=== PATIENT | female | born 1935 | race Caucasian/White ===

== ENCOUNTER 2020-10-18 13:50 | Emergency (ER) | payer OTHER ==
[~2020-10-18] VITALS: Ht 154.9 cm; Wt 54.4 kg
[2020-10-18 15:36] LABS: ABSOLUTE BASOPHILS 0.1 thou/uL (0.0-0.2); ABSOLUTE LYMPHOCYTES 1.5 thou/uL (0.8-5.3); ABSOLUTE MONOCYTES 0.7 thou/uL (0.0-1.2); ABSOLUTE NEUTROPHILS 5.1 thou/uL (1.6-8.1); BASOPHILS 0.9 %; EOSINOPHILS 0.4 %; HEMATOCRIT 33.8 % (37.0-47.0); HEMOGLOBIN 10.5 gm/dL (12.0-15.0); LYMPHOCYTES 20.4 %; MCH 26.8 pg (26.0-34.0); MCHC 31.1 g/dL (28.0-37.0); MCV 86.1 fL (80.0-100.0); MONOCYTES 9.4 %; MPV 7.6 fl. (7.2-11.1); NUCLEATED RBCS 0 /100WBC; PLATELET COUNT* 247 thou/uL (150-400); POLYS 68.9 %; RBC 3.92 mil/uL (4.20-5.00); RDW-CV 18.1 % (10.5-14.5); WBC 7.4 thou/uL (4.0-11.0)
[2020-10-18 15:39] LABS: CALCIUM 9.4 mg/dL (8.5-10.1); CREATININE 1.7 mg/dL (0.6-1.3); POTASSIUM 3.6 mmol/L (3.5-5.1)
[2020-10-18 16:00] LABS: APTT 36.7 Seconds (25.0-31.3); INR 1.4; PROTIME 14.6 Seconds (9.20-11.50)
[2020-10-18] MEDS ORDERED: CEPHALEXIN500 MG PO (16:03)
[2020-10-18] MEDS ORDERED: HYDROCODON-ACE1 EAC7 PO (16:11)
[2020-10-18 16:45] VITALS: BP 134/72
== END 2020-10-18 16:45 | disposition home or self-care (01) ==
LOC: M.ERS 13:50
PROVIDERS: Nurse Practitioner Psychiatric/Mental Health
DX: R60.0 Localized edema (principal); M71.21 Synovial cyst of popliteal space [Baker], right knee; I10 Essential (primary) hypertension; I48.91 Unspecified atrial fibrillation

== ENCOUNTER 2021-02-16 17:00 | Observation (INO) | payer OTHER ==
[~2021-02-16] VITALS: Ht 154.9 cm; Wt 54.4 kg
[~2021-02-16 17:00] MED LIST: CEPHALEXIN500 MG PO; HYDROCODON-ACE1 EAC7 PO
[2021-02-16 17:09] VITALS: BP 118/43
[2021-02-16] MEDS ORDERED: LISINOPRIL10 MG PO (17:23)
[2021-02-16] MEDS ORDERED: XARELTO2.5 MG PO (17:23)
[2021-02-16] MEDS ORDERED: LIPITOR10 MG PO (17:23)
[2021-02-16] MEDS ORDERED: AMOXICILLIN 50500 MG PO (17:24)
[2021-02-16] MEDS ORDERED: ZOFRAN4 MG PO (17:24)
[2021-02-16] MEDS ORDERED: [UNRECOGNIZED DRUG - REMARK] (17:24)
[2021-02-16 18:42] LABS: ABSOLUTE MONOCYTES 0.4 thou/uL (0.0-1.2); HEMOGLOBIN 7.3 gm/dL (12.0-15.0); WBC 5.2 thou/uL (4.0-11.0)
[2021-02-16 18:43] LABS: ABSOLUTE BASOPHILS 0.1 thou/uL (0.0-0.2); ABSOLUTE LYMPHOCYTES 1.6 thou/uL (0.8-5.3); ABSOLUTE NEUTROPHILS 3.1 thou/uL (1.6-8.1); EOSINOPHILS 0.8 %; HEMATOCRIT 24.3 % (37.0-47.0); LYMPHOCYTES 31.2 %; MCH 21.8 pg (26.0-34.0); MCHC 30.1 g/dL (28.0-37.0); MCV 72.4 fL (80.0-100.0); MONOCYTES 7.2 %; MPV 6.9 fl. (7.2-11.1); NUCLEATED RBCS 0 /100WBC; PLATELET COUNT* 302 thou/uL (150-400); POLYS 59.8 %; RBC 3.35 mil/uL (4.20-5.00); RDW-CV 17.9 % (10.5-14.5)
[2021-02-16 18:43] LABS: URINE BILIRUBIN NEGATIVE (Negative); URINE BLOOD NEGATIVE (Negative); URINE CLARITY CLEAR; URINE COLOR YELLOW; URINE GLUCOSE-RANDOM NEGATIVE (Negative); URINE KETONES NEGATIVE (Negative); URINE LEUKOCYTES 1+ (Negative); URINE NITRITE NEGATIVE (Negative); URINE PROTEIN TRACE (Negative); URINE UROBILINOGEN 0.2 E.U./dl (0.2-1.0)
[2021-02-16 18:54] LABS: CALCIUM 9.1 mg/dL (8.5-10.1); CREATININE 2.1 mg/dL (0.6-1.3); POTASSIUM 3.9 mmol/L (3.5-5.1)
[2021-02-16 18:59] LABS: ALBUMIN 3.9 g/dL (3.4-5.0); TOTAL BILIRUBIN 0.6 mg/dL (<0.1-1.0); TOTAL PROTEIN 6.9 g/dL (6.4-8.2)
[2021-02-16 19:03] LABS: CRYSTALS None Seen /LPF (None Seen); HYALINE CASTS 4-10 Moderate /LPF (None Seen); MUCUS None Seen strn/LPF (None Seen); SQUAMOUS >10 Many /LPF (0-3)
[2021-02-16 19:04] LABS: BACTERIA 1-9 Few /HPF (None Seen); TRANSITIONAL EPITHEL CELL 0-3 Few /LPF (None Seen); URINE RBC 0-2 Rare /HPF (0-2); URINE WBC 0-5 Rare /HPF (0-5)
[2021-02-16 19:22] LABS: ANISOCYTOSIS 2+; OVALOCYTES Occasional; PLATELET ESTIMATE ADEQUATE
[2021-02-16 19:23] LABS: HYPOCHROMASIA 2+; MICROCYTES 1+
[2021-02-16 21:21] LABS: ABSOLUTE MONOCYTES 0.3 thou/uL (0.0-1.2); NUCLEATED RBCS 0 /100WBC; WBC 4.2 thou/uL (4.0-11.0)
[2021-02-16 21:23] LABS: ABSOLUTE LYMPHOCYTES 1.5 thou/uL (0.8-5.3); ABSOLUTE NEUTROPHILS 2.4 thou/uL (1.6-8.1); BASOPHILS 0.7 %; EOSINOPHILS 0.5 %; HEMATOCRIT 22.1 % (37.0-47.0); LYMPHOCYTES 35.4 %; MCH 21.7 pg (26.0-34.0); MCHC 30.1 g/dL (28.0-37.0); MPV 6.4 fl. (7.2-11.1); PLATELET COUNT* 232 thou/uL (150-400); POLYS 56.4 %; RBC 3.06 mil/uL (4.20-5.00); RDW-CV 17.5 % (10.5-14.5)
[2021-02-16 21:25] LABS: HEMOGLOBIN 6.6 gm/dL (12.0-15.0)
[2021-02-16 21:29] LABS: CALCIUM 8.8 mg/dL (8.5-10.1); CREATININE 1.9 mg/dL (0.6-1.3); POTASSIUM 3.8 mmol/L (3.5-5.1)
[2021-02-16 21:34] LABS: ALBUMIN 3.4 g/dL (3.4-5.0); TOTAL BILIRUBIN 0.5 mg/dL (<0.1-1.0); TOTAL PROTEIN 6.1 g/dL (6.4-8.2)
[2021-02-16 23:12] VITALS: BP 125/65
[2021-02-17] VITALS (7 sets, daily range): BP systolic 127–160; BP diastolic 66–95
[2021-02-17 05:00] LABS: HEMATOCRIT 32.2 % (37.0-47.0); MCH 23.4 pg (26.0-34.0); MCHC 30.8 g/dL (28.0-37.0); MCV 76.1 fL (80.0-100.0); MPV 6.7 fl. (7.2-11.1); RBC 4.23 mil/uL (4.20-5.00); RDW-CV 17.9 % (10.5-14.5)
[2021-02-17 05:44] LABS: HEMOGLOBIN 9.9 gm/dL (12.0-15.0)
--- NOTE | 2021-02-17 11:42 | EKG ---
[place] [address] ELECTROCARDIOGRAM REPORT Name: DIMITRIOS PAUL Room: [place] [address] ADM IN [facility]#: [id number] Admission: 02/16/21 Attend Phys: Jey De La Vega Discharge: Date of : 31 Date of Service: 02/16/211831 Report #: [id number] THIS REPORT FOR: //name// [facility] ED Test Date: 2021-02-16 Test Time: 18:32:50 Pat Name: DIMITRIOS PAUL Department: Room: [facility] Gender: F Grief Counselor: ARI : 1935 Requested By: Jed Catalan Order Number: [id number] MD: Nino López Measurements Intervals [place] Rate: 56 P: VT: QRS: 57 QRSD: 102 T: 193 QT: 483 QTc: 467 Interpretive Statements Atrial fibrillation Probable anterior infarct, age indeterminate Lateral leads are also involved No previous ECG available for comparison Electronically Signed On 02-17-2021 11:42:18 [employer] by Nino López [email or web address] <ELECTRONICALLY SIGNED> By: Nino López MD, FACC 02/17/21 1142 183 183 Nino López MD, FAC /EPI
[2021-02-17] MEDS ORDERED: LASIX 40 MG TAB40 MG PO (11:58)
[2021-02-17] MEDS ORDERED: KLOR-CON M2020 MEQ PO (11:59)
[2021-02-17] MEDS ORDERED: MIRALAX119 GM PO (11:59)
[2021-02-17] MEDS ORDERED: ALLOPURINOL 10100 M1 PO (12:01)
[2021-02-17] MEDS ORDERED: ONDANSETRON ODT4 MG PO (12:01)
[2021-02-17] MEDS ORDERED: PEPCID40 MG PO (12:02)
[2021-02-17] MEDS ORDERED: ROXICODONE15 M1 PO (12:03)
[2021-02-17] MEDS ORDERED: LEVO-T100 MCG PO (12:04)
[2021-02-17] MEDS ORDERED: VERAPAMIL SR 1120 MG PO (12:04)
[2021-02-17] MEDS ORDERED: ERYTHROMYCIN250 MG PO (12:05)
== END 2021-02-17 16:41 | disposition home or self-care (01) ==
LOC: M.ERS 17:00 → M.TBA-ER 21:48
PROVIDERS: Physician Assistant; ADMIT Internal Medicine; ATTEND Internal Medicine
DX: M71.20 Synovial cyst of popliteal space [Baker], unspecified knee (principal); D64.9 Anemia, unspecified; Z20.822 Contact with and (suspected) exposure to COVID-19; I12.9 Hypertensive chronic kidney disease with stage 1 through stage 4 chronic kidney disease, or unspecified chronic kidney disease; N18.30 Chronic kidney disease, stage 3 unspecified; N17.9 Acute kidney failure, unspecified; I48.91 Unspecified atrial fibrillation; Z79.899 Other long term (current) drug therapy